=== PATIENT | female | born 1995 | race Caucasian/White ===

== ENCOUNTER 2017-02-24 10:59 | Emergency (ER) | payer OTHER ==
[~2017-02-24] VITALS: Ht 160 cm; Wt 85.0 kg
[~2017-02-24 10:59] MED LIST: HYDR-1666; IBUP-1542
[2017-02-24 11:06] VITALS: Ht 160 cm; Wt 85.0 kg
[2017-02-24] MEDS ORDERED: KETOROLAC 60 MG INJ IM STA (12:17)
[2017-02-24] MEDS ORDERED: MECLIZINE 12.5 MG TAB PO ONE (12:30)
[2017-02-24 12:33] LABS: URINE BLOOD (Dip) POC Negative (NEGATIVE)
[2017-02-24] MEDS ORDERED: MECL12.574 PO (13:53)
[2017-02-24] MEDS ORDERED: IBUP-1542 PO (13:53)
[2017-02-24 14:00] VITALS: BP 118/70; PULSE 74; RESP 18; TEMP 98.7
--- NOTE | 2017-02-24 14:04 | ERD ---
ER Documentation Chief Complaint Date/Time DATE: 02/24/17 TIME: 13:56 Chief Complaint NECK AND HEAD PAIN X 3 WEEKS, FEELS DIZZY ; DENIES N/V HPI 21-year-old female patient with no significant past medical history presents the ED complaining of bilateral trapezius muscular pain, neck pain, temporal headache that started intermittently for 3 weeks. States that when she changes position, she feels dizzy. Denies any fever, chills, chest pain, shortness of breath, weakness, numbness or tingling, photophobia, phonophobia, blurred vision , diplopia, vision loss. Reports that her last menstruation was on February. Denies any head or neck injuries. Denies any loss of consciousness, seizures. Denies any syncope. ROS All systems reviewed and are negative except as per history of present illness. Medications Home Meds Active Scripts Ibuprofen* (Motrin*) 600 Mg Tab, 600 MG PO Q6, #30 TAB Prov:PREMA TODD PA-C 02/24/17 Meclizine Hcl* (Antivert*) 12.5 Mg Tab, 12.5 MG PO Q6H Y for DIZZINESS, #20 TAB Prov:PREMA TODD PA-C 02/24/17 Reported Medications Ibuprofen* (Ibuprofen*) 600 Mg Tablet, Q6 06/16/13 Hydrocodone Bit/Acetaminophen (Vicodin 5/500 Tablet) 1 Tab Tablet, Q8 06/16/13 Allergies Allergies: Coded Allergies: No Known Allergy (Unverified , 06/16/13) PMhx/Soc Medical and Surgical Hx: pt denies Medical Hx, pt denies Surgical Hx History of Surgery: No Anesthesia Reaction: No Hx Neurological Disorder: No Hx Respiratory Disorders: No Hx Cardiac Disorders: No Hx Psychiatric Problems: No Hx Miscellaneous Medical Probl: No Hx Alcohol Use: Yes (occasionally) Hx Substance Use: No Hx Tobacco Use: No Physical Exam Vitals Vital Signs Date Time Temp Pulse Resp B/P Pulse Ox O2 Delivery O2 Flow Rate FiO2 02/24/17 11:06 98.8 78 19 123/72 95 Physical Exam Const: [id number], well-nourished. In no acute distress. Head: Atraumatic, normocephalic Eyes: Normal Conjunctiva without injection. No purulent discharge. PERRLA. EOMI ENT: Normal external ear. Ear canal without erythema. Tympanic membrane pearly martinez without effusion or bulging. Nasal canal clear with normal turbinates. Moist oropharynx without tonsillar exudates. Non-erythematous pharynx. Uvula midline. No drooling. No trismus. Neck: No cervical midline tenderness. Full range of motion. No meningismus. No cervical lymphadenopathy. No JVD. Resp: Clear to auscultation bilaterally. No wheezing, rhonchi, rales, or crackles. No accessory muscle use. No retractions. Cardio: Regular rate and rhythm. No murmurs, rubs or gallops. Abd: Soft, non tender, non distended. Normal bowel sounds. No palpable masses. No rebound tenderness. No guarding. Negative McBurney's Point. Negative Griffin's Sign. Skin: Normal skin turgor. No petechiae or rashes Back: No midline tenderness. No CVA tenderness. Ext: No cyanosis, or edema. Distal pulses intact bilaterally. Neur: Awake and alert. Normal gait. Normal coordination. Cranial Nerves II- VII intact. Normal finger to nose. Muscle strength 5/5. Sensation intact. Psych: Normal Mood and Affect Results 24 hrs Laboratory Tests Test 02/24/17 12:39 Bedside Urine pH (LAB) 7.0 Bedside Urine Protein (LAB) Negative Bedside Urine Glucose (UA) Negative Bedside Urine Ketones (LAB) Negative Bedside Urine Blood Negative Bedside Urine Nitrite (LAB) Negative Bedside Urine Leukocyte Esterase (L Trace Current Medications Medications (Trade) Dose Ordered Sig/Danny Route PRN Reason Start Time Stop Time Status Last Admin Dose Admin Ketorolac Tromethamine (Toradol) 60 mg ONCE STAT IM 02/24/17 12:17 02/24/17 12:18 DC 02/24/17 12:34 Meclizine HCl (Antivert) 25 mg ONCE ONCE PO 02/24/17 12:30 02/24/17 12:31 DC 02/24/17 12:34 Procedures/MDM This is a 21-year-old female patient with no significant past medical history presents the ED complaining of neck, head pain that started intimately for 3 weeks with associated postural dizziness. Patient is afebrile and nontoxic- appearing. Patient has normal vital signs. Patient was given Toradol here in the ED with improvement of her symptoms. Negative . Patient was also given meclizine here in the ED and stated that her positional dizziness has improved. Trace leukocyte esterase noted on her urine dip. Patient likely has positional vertigo. Low suspicion for intracranial bleed, subarachnoid hemorrhage, subdural hematoma, epidural hematoma, seizures, meningitis, or other emergent conditions. Discharge medications: Ibuprofen, Meclizine Follow up with primary care physician in 1-2 days. Instructed patient to return to the ED sooner for any worsening symptoms. Patient's questions were answered. Patient understood and agreed with discharge plan. Patient discharged stable. Departure Diagnosis: Primary Impression: Neck pain Additional Impression: Headache Headache type: unspecified Headache chronicity pattern: unspecified pattern Intractability: not intractable Qualified Code: R51 - Nonintractable headache, unspecified chronicity pattern, unspecified headache type Condition: Stable Patient Instructions: Benign Positional Vertigo, Headache, Unspecified, Back And Neck Pain, General Referrals: [facility] YOU HAVE RECEIVED A MEDICAL SCREENING EXAM AND THE RESULTS INDICATE THAT YOU DO NOT HAVE A CONDITION THAT REQUIRES URGENT TREATMENT IN THE EMERGENCY DEPARTMENT. FURTHER EVALUATION AND TREATMENT OF YOUR CONDITION CAN WAIT UNTIL YOU ARE SEEN IN YOUR DOCTORS OFFICE WITHIN THE NEXT 1-2 DAYS. IT IS YOUR RESPONSIBILITY TO MAKE AN APPOINTMENT FOR FOLOW-UP CARE. IF YOU HAVE A PRIMARY DOCTOR --you should call your primary doctor and schedule an appointment IF YOU DO NOT HAVE A PRIMARY DOCTOR YOU CAN CALL OUR PHYSICIAN REFERRAL HOTLINE AT IF YOU CAN NOT AFFORD TO SEE A PHYSICIAN YOU CAN CHOSE FROM THE FOLLOWING [facility] [address] [facility]. [facility] [address] [facility] [address] [facility]. [facility] [address] [facility]. [facility] [address] [facility]. [facility]. [address] [facility] YOU HAVE RECEIVED A MEDICAL SCREENING EXAM AND THE RESULTS INDICATE THAT YOU DO NOT HAVE A CONDITION THAT REQUIRES URGENT TREATMENT IN THE EMERGENCY DEPARTMENT. FURTHER EVALUATION AND TREATMENT OF YOUR CONDITION CAN WAIT UNTIL YOU ARE SEEN IN YOUR DOCTORS OFFICE WITHIN THE NEXT 1-2 DAYS. IT IS YOUR RESPONSIBILITY TO MAKE AN APPOINTMENT FOR FOLOW-UP CARE. IF YOU HAVE A PRIMARY DOCTOR --you should call your primary doctor and schedule and appointment IF YOU DO NOT HAVE A PRIMARY DOCTOR YOU CAN CALL OUR PHYSICIAN REFERRAL HOTLINE AT . IF YOU CAN NOT AFFORD TO SEE A PHYSICIAN YOU CAN CHOSE FROM THE FOLLOWING [facility] INSTITUTIONS: [facility] [id number] [place] [address] [facility] [address] [place] [address] [facility] + [facility] [address] [place] [address] [facility]CIALTIES Additional Instructions: Call your primary care doctor TOMORROW for an appointment during the next 1-2 days for a referral to see a neurologist if symptoms do not improve.See the doctor sooner or return here if your condition worsens before your appointment time - seizures, fainting, weakness, etc. PREMA TODD PA-C Feb 24, 2017 14:03 PREMA TODD PA-C Feb 24, 2017 14:03
== END 2017-02-24 14:10 | disposition home or self-care (01) ==
LOC: FTE 10:59
DX: M54.2 Cervicalgia (principal); R51 Headache
CPT/HCPCS: 81003; J1885; Z7610; 96372

== ENCOUNTER 2017-08-24 17:53 | Emergency (ER) | END 2017-08-24 21:15 | disposition home or self-care (01) ==